=== PATIENT | female | born 1990 | race Two or more races ===

== ENCOUNTER 2019-05-20 23:28 | Emergency (ER) | payer MEDICAID ==
[~2019-05-20] VITALS: Ht 162.6 cm; Wt 65.8 kg
[2019-05-21 04:03] VITALS: BP 118/82
[2019-05-21] MEDS ORDERED: ACETAMINOPHEN/CODEINE#3 (300/30mg) TAB PO ONE (04:15)
== END 2019-05-21 04:50 | disposition home or self-care (01) ==
LOC: EDBD 23:28 → ER 23:32
DX: O9A.212 Injury, poisoning and certain other consequences of external causes complicating pregnancy, second trimester (principal); M62.838 Other muscle spasm; J30.9 Allergic rhinitis, unspecified; Z3A.17 17 weeks gestation of pregnancy; V43.52XA Car driver injured in collision with other type car in traffic accident, initial encounter; Y93.89 Activity, other specified; Y99.8 Other external cause status; Y92.410 Unspecified street and highway as the place of occurrence of the external cause

== ENCOUNTER 2019-09-10 16:24 | Observation (INO) | payer MEDICAID ==
[2019-09-10] MEDS ORDERED: PREN-96 PO (17:18)
== END 2019-09-10 17:12 | disposition home or self-care (01) | DRG 563 ==
LOC: LDRP 16:24
PROVIDERS: ADMIT Specialist; ATTEND Specialist
DX: O60.03 Preterm labor without delivery, third trimester (principal); Z3A.31 31 weeks gestation of pregnancy
CPT/HCPCS: 59025; 81002; G0378

== ENCOUNTER 2019-09-13 20:21 | Observation (INO) | payer MEDICAID ==
[~2019-09-13] VITALS: Ht 160 cm; Wt 73.5 kg
[~2019-09-13 20:21] MED LIST: PREN-96 PO
[2019-09-13] MEDS ORDERED: ACETAMINOPHEN 325 MG TAB PO ONE ×2 (21:14→21:15)
== END 2019-09-13 21:45 | disposition home or self-care (01) | DRG 566 ==
LOC: LDRP 20:21
PROVIDERS: ADMIT Obstetrics & Gynecology; ATTEND Obstetrics & Gynecology
DX: O99.513 Diseases of the respiratory system complicating pregnancy, third trimester (principal); O26.893 Other specified pregnancy related conditions, third trimester; J00 Acute nasopharyngitis [common cold]; R05 Cough; R10.9 Unspecified abdominal pain; Z3A.32 32 weeks gestation of pregnancy
CPT/HCPCS: 59025; 81002; 82948; 82962; G0378

== ENCOUNTER 2019-10-12 09:45 | Observation (INO) | payer MEDICAID ==
[2019-10-12 10:41] LABS: Basophils # (auto) 0 10 ^3/uL (0-0.2); Basophils % (auto) 0.4 % (0.0-2.0); Eosinophils # (auto) 0 10 ^3/uL (0-0.8); Eosinophils % (auto) 0.1 % (0.0-7.0); Hematocrit 38.8 % (36.0-46.0); Hemoglobin 13.2 g/dL (12.2-16.2); Lymphocytes # (auto) 1.5 10 ^3/uL (0.4-5.4); Lymphocytes % (auto) 17.3 % (10.0-50.0); Mean Corpuscular Hemoglobin 31.2 pg (28.0-32.0); Mean Corpuscular Hgb Conc. 34.2 g/dL (32.0-36.0); Mean Corpuscular Volume 91.4 fL (80.0-100.0); Monocytes # (auto) 0.3 10 ^3/uL (0-1.3); Monocytes % (auto) 3.9 % (0.0-12.0); Neutrophils # (auto) 6.8 10 ^3/uL (1.6-8.6); Neutrophils % (auto) 78.3 % (37.0-80.0); Nucleated Red Blood Cells % 0.1 %; Platelet Count (auto) 173 10^3/uL (140-450); Red Blood Cells 4.24 10^6/uL (4.0-5.20); Red Cell Distribution Width 15.1 % (11.8-14.3); White Blood Cell 8.7 10^3/uL (4.4-10.8)
[2019-10-12 10:47] LABS: Albumin 2.3 g/dL (3.4-5.0); Calcium 8.6 mg/dL (8.5-10.1); Potassium 3.7 mmol/L (3.5-5.1); Uric Acid 3.8 mg/dL (2.6-6.0)
[2019-10-12 10:50] LABS: BUN/Creatinine Ratio 13.7; Bilirubin, Total 0.4 mg/dL (0.2-1.0); Total Protein 6.7 g/dL (6.4-8.2)
[2019-10-12 11:12] LABS: INR 0.89 (0.9-1.15)
[2019-10-12] MEDS ORDERED: URSO300C9 PO (12:07)
[2019-10-12] MEDS ORDERED: GLYB1.257 PO (12:07)
[2019-10-13 07:06] LABS: RPR Non Reactive (Non Reactive)
== END 2019-10-12 13:00 | disposition home or self-care (01) | DRG 566 ==
LOC: LDRP 09:45
PROVIDERS: ADMIT Specialist; ATTEND Specialist
DX: O24.419 Gestational diabetes mellitus in pregnancy, unspecified control (principal); K83.1 Obstruction of bile duct; O26.613 Liver and biliary tract disorders in pregnancy, third trimester; Z3A.36 36 weeks gestation of pregnancy
CPT/HCPCS: 36415; 59025; 76805; 76818; 80053; 81002; 82962; 84550; 85025; 85610; 85730; 86592; G0378

== ENCOUNTER 2019-10-15 11:40 | Observation (INO) | payer MEDICAID ==
[~2019-10-15] VITALS: Ht 160 cm; Wt 73.5 kg
[~2019-10-15 11:40] MED LIST changes: +GLYB1.257 PO; +URSO300C9 PO
[2019-10-15] MEDS ORDERED: BETAMETHASONE ACET (6MG/ML) 5ML VIAL IM ONE (12:45)
[2019-10-15 13:42] LABS: Albumin 2.3 g/dL (3.4-5.0); Calcium 8.7 mg/dL (8.5-10.1); Potassium 3.9 mmol/L (3.5-5.1)
[2019-10-15 13:47] LABS: BUN/Creatinine Ratio 14.5; Bilirubin, Total 0.4 mg/dL (0.2-1.0); Total Protein 6.9 g/dL (6.4-8.2)
== END 2019-10-15 14:25 | disposition home or self-care (01) | DRG 566 ==
LOC: LDRP 11:40
PROVIDERS: ADMIT Obstetrics & Gynecology; ATTEND Obstetrics & Gynecology
DX: O24.419 Gestational diabetes mellitus in pregnancy, unspecified control (principal); O26.613 Liver and biliary tract disorders in pregnancy, third trimester; K83.1 Obstruction of bile duct; Z3A.37 37 weeks gestation of pregnancy
CPT/HCPCS: 36415; 59025; 76818; 80053; 81002; 82948; 82962; 96372; G0378; J0702

== ENCOUNTER 2019-10-16 13:10 | Observation (INO) | payer MEDICAID ==
[~2019-10-16] VITALS: Ht 160 cm; Wt 72.6 kg
[2019-10-16] MEDS ORDERED: BETAMETHASONE ACET (6MG/ML) 5ML VIAL IM ONE (13:45)
== END 2019-10-16 14:10 | disposition home or self-care (01) | DRG 566 ==
LOC: LDRP 13:10
PROVIDERS: ADMIT Specialist; ATTEND Specialist
DX: O26.613 Liver and biliary tract disorders in pregnancy, third trimester (principal); K83.1 Obstruction of bile duct; O24.415 Gestational diabetes mellitus in pregnancy, controlled by oral hypoglycemic drugs; Z3A.36 36 weeks gestation of pregnancy
CPT/HCPCS: 59025; 81002; 96372; G0378

== ENCOUNTER 2019-10-19 10:21 | Outpatient (CLI) | payer MEDICAID | END 2019-10-19 11:39 | disposition home or self-care (01) | LOC: LDRP 10:21 → UNDOADMOB 10:21 → OB 10:21 → UNDODISOB 11:39 → EDSTATUS 11-08 06:45 | PROVIDERS: ATTEND Obstetrics & Gynecology | DX: O26.613 Liver and biliary tract disorders in pregnancy, third trimester (principal); Z3A.37 37 weeks gestation of pregnancy | CPT/HCPCS: 76805; 76818; G0378 ==

== ENCOUNTER 2019-10-19 17:00 | Observation (INO) | payer MEDICAID ==
[2019-10-19 18:40] LABS: Albumin 2.4 g/dL (3.4-5.0); Calcium 8.5 mg/dL (8.5-10.1)
[2019-10-19 18:44] LABS: Bilirubin, Total 0.2 mg/dL (0.2-1.0); Total Protein 6.8 g/dL (6.4-8.2)
[2019-10-19 18:52] LABS: BUN/Creatinine Ratio 23.4
== END 2019-10-19 19:31 | disposition home or self-care (01) | DRG 566 ==
LOC: LDRP 17:00
PROVIDERS: ADMIT Obstetrics & Gynecology; ATTEND Obstetrics & Gynecology
DX: O26.613 Liver and biliary tract disorders in pregnancy, third trimester (principal); K83.1 Obstruction of bile duct; O24.419 Gestational diabetes mellitus in pregnancy, unspecified control; Z3A.37 37 weeks gestation of pregnancy
CPT/HCPCS: 36415; 59025; 80053; 81002; 82962; G0378

== ENCOUNTER 2019-10-22 19:06 | Observation (INO) | payer MEDICAID ==
[~2019-10-22] VITALS: Ht 160 cm; Wt 74.8 kg
== END 2019-10-22 22:02 | disposition home or self-care (01) | DRG 566 ==
LOC: LDRP 19:06
PROVIDERS: ADMIT Specialist; ATTEND Specialist
DX: O24.415 Gestational diabetes mellitus in pregnancy, controlled by oral hypoglycemic drugs (principal); K83.1 Obstruction of bile duct; O26.613 Liver and biliary tract disorders in pregnancy, third trimester; Z3A.37 37 weeks gestation of pregnancy
CPT/HCPCS: 59025; 76818; 81002; 82962; G0378

== ENCOUNTER 2019-10-23 09:18 | Inpatient (IN) | payer MEDICAID ==
[~2019-10-23] VITALS: Ht 160 cm; Wt 74.8 kg
[2019-10-23] MEDS ORDERED: METHYLERGONOVINE MALEATE 0.2 MG/ML AMP IM PRN (09:30)
[2019-10-23] MEDS ORDERED: LACT. RINGERS/OXYTOCIN 20UNITS 1,000 ML IV SCH (09:30)
[2019-10-23] MEDS ORDERED: CARBOPROST TROMETHAMINE 250 MCG/1ML VIAL IM PRN (09:30)
[2019-10-23] MEDS ORDERED: LIDOCAINE 2%HCL (LOCAL ANESTH.) INJ 20ML MDV ID ONE (09:30)
[2019-10-23] MEDS ORDERED: PHISODERM TOP SOLN 240ML BTL TOP PRN (09:30)
[2019-10-23] MEDS ORDERED: NALBUPHINE HCL 10 MG/1ml INJECTION IV PRN (09:30)
[2019-10-23 10:27] LABS: Basophils # (auto) 0.1 10 ^3/uL (0-0.2); Basophils % (auto) 0.6 % (0.0-2.0); Eosinophils # (auto) 0 10 ^3/uL (0-0.8); Eosinophils % (auto) 0.3 % (0.0-7.0); Hemoglobin 12.7 g/dL (12.2-16.2); Lymphocytes # (auto) 1.5 10 ^3/uL (0.4-5.4); Lymphocytes % (auto) 18.2 % (10.0-50.0); Mean Corpuscular Hemoglobin 31.6 pg (28.0-32.0); Mean Corpuscular Hgb Conc. 34.2 g/dL (32.0-36.0); Mean Corpuscular Volume 92.5 fL (80.0-100.0); Monocytes # (auto) 0.5 10 ^3/uL (0-1.3); Monocytes % (auto) 5.6 % (0.0-12.0); Neutrophils # (auto) 6.3 10 ^3/uL (1.6-8.6); Neutrophils % (auto) 75.3 % (37.0-80.0); Nucleated Red Blood Cells % 0.1 %; Platelet Count (auto) 171 10^3/uL (140-450); Red Cell Distribution Width 15.8 % (11.8-14.3); White Blood Cell 8.3 10^3/uL (4.4-10.8)
[2019-10-23 10:33] LABS: Urine Bacteria FEW /hpf (None Seen); Urine Blood Negative /uL (Negative); Urine Specific Gravity 1.004 (1.001-1.035); Urine WBC 8 /hpf (0 - 5)
[2019-10-23 10:48] LABS: INR 0.9 (0.9-1.15); Partial Thromboplastin Time 29.1 sec (23.64-32.05)
[2019-10-23] MEDS: miSOPROStol 50 MCG per PRE-CUT 1/2 TAB PO PRN ×4 (10:56→23:50)
[2019-10-23 11:03] LABS: Albumin 2.2 g/dL (3.4-5.0); Calcium 8.6 mg/dL (8.5-10.1); Potassium 3.8 mmol/L (3.5-5.1)
[2019-10-23 11:08] LABS: BUN/Creatinine Ratio 17.8; Bilirubin, Total 0.2 mg/dL (0.2-1.0); Total Protein 6.4 g/dL (6.4-8.2)
[2019-10-23] MEDS: LACTATED RINGER'S 1,000 ML IV SCH ×2 (17:00→23:38)
[2019-10-23] MEDS: BUTORPHANOL TARTRATE 2 MG/1 ML VIAL IV PRN (23:44)
[2019-10-23] MEDS: PROMETHAZINE HCL 25 MG/ML 1ML IM PRN (23:44)
[2019-10-24] MEDS: WITCH HAZEL-GLYCERIN PAD TOP PRN (03:23)
[2019-10-24] MEDS: DERMOPLAST 60ML BOTTLE TOP PRN (03:23)
[2019-10-24] MEDS: PROMETHAZINE HCL 25 MG/ML 1ML IM PRN (04:06)
[2019-10-24] MEDS: BUTORPHANOL TARTRATE 2 MG/1 ML VIAL IV PRN (04:07)
[2019-10-24] MEDS: LACTATED RINGER'S 1,000 ML IV SCH ×3 (04:24→09:45)
[2019-10-24 05:06] LABS: RPR Non Reactive (Non Reactive)
[2019-10-24] MEDS ORDERED: LACTATED RINGER'S 1,000 ML IV ONE (07:08)
[2019-10-24] MEDS ORDERED: fentaNYL CITRATE 100 MCG/2 ML VL IV ONE (07:15)
[2019-10-24] MEDS ORDERED: fentaNYL 200mCg/100ml W ROPIVA 100 ML EPI SCH (07:15)
[2019-10-24] MEDS ORDERED: LIDOCAINE HCL 2 %PF INJ 10ML AMP IJ ONE (07:15)
[2019-10-24] MEDS ORDERED: ePHEDrine SULFATE 50 MG/ML AMP IV ONE (07:15)
[2019-10-24] MEDS ORDERED: NALOXONE HCL 0.4 MG/ML VIAL IV ONE (07:15)
[2019-10-24] MEDS ORDERED: D5W/LACTATED RINGERS 1,000 ML IV SCH (11:15)
[2019-10-24] MEDS ORDERED: ceFAZolin 1GM/50ML 50 ML IV ONE (15:30)
--- NOTE | 2019-10-24 19:00 | NUR ---
Ambulation: Patient OOB with standby assistance by RN. Patient ambulated to bathroom with steady gait. Patient able to void 700ML without difficulty. [facility] teaching provided with returned demonstration by patient. Clean gown provided and bed linen changed. Patient ambulated back to bed with steady gait and no distress noted.
[2019-10-24] MEDS ORDERED: ACETAMINOPHEN 325 MG TAB PO PRN (19:45)
[2019-10-24] MEDS: DOCUSATE SOD 100 MG CAP PO SCH (22:00)
[2019-10-24] MEDS: IBUPROFEN 600 MG TAB PO PRN (22:51)
[2019-10-24 23:04] VITALS: BP 111/68
[2019-10-25 07:10] VITALS: BP 106/64
[2019-10-25] MEDS: IBUPROFEN 600 MG TAB PO PRN ×3 (07:14→20:57)
[2019-10-25 11:00] VITALS: BP 118/68
[2019-10-25 14:30] VITALS: BP 110/53
--- NOTE | 2019-10-25 18:35 | NUR ---
IV removal: Pt states discomfort in IV. IV site without redness, swelling or infiltration. Pt requests for IV to be DC'd. IV DC'd with clean sterile technique, catheter fully intact. Pressure dressing applied to site. Patient tolerated well.
[2019-10-25 18:45] VITALS: BP 111/55
--- NOTE | 2019-10-25 18:45 | NUR ---
PT REQUESTING TO SHOWER AT THIS TIME. THIS RN PROVIDES CLEAN LINENS AND NEW GOWN FOR PT. FOB ACCOMPANIES MOM TO SHOWER AND KEEPS BABY IN [place] NEARBY. NO DISTRESS NOTED AT THIS TIME.
[2019-10-25 23:30] VITALS: BP 119/62
[2019-10-26 02:20] VITALS: BP 118/76
[2019-10-26 03:30] VITALS: BP 118/76
--- NOTE | 2019-10-26 06:15 | NUR ---
Report received from Froylan Negro RN on stable pt. Assumed care. Addendum: 10/26/19 at 0629 by Marie Buckley RN Amended: Links added.
[2019-10-26 06:42] VITALS: BP 114/65
[2019-10-26] MEDS: IBUPROFEN 600 MG TAB PO PRN (06:54)
--- NOTE | 2019-10-26 07:00 | NUR ---
Teaching: Reviewed information in [facility] booklet with patient. Discussed benefits of and risks associated with not . Discussed different positions, proper latch, feeding cues, and baby-led . Provided information of medication side effects related to . All questions and concerns addressed at this time. Patient verbalized understanding of information.
--- NOTE | 2019-10-26 10:12 | NUR ---
Discharge: Discharge instructions given as ordered. Pt encouraged to follow up with [facility] as instructed. All questions and concerns addressed. Patient verbalized understanding. Medication reconciliation completed and copy given to patient. All required/requested vaccines given and copies of vaccinations given to patient. Patient encouraged to prepare to depart unit.
[2019-10-26] MEDS: DERMOPLAST 60ML BOTTLE TOP PRN (10:25)
[2019-10-26] MEDS: DOCUSATE SOD 100 MG CAP PO SCH (10:25)
--- NOTE | 2019-10-26 10:44 | NUR ---
Cord dry, cord clamp removed. Signed: 10/26/19 at 1056 by TOMMY JOHNSTON SN <Co-Signature Required> Co-Signed: 10/26/19 at 1056 by Marie Buckley RN
[2019-10-26 10:46] VITALS: BP 112/59
[2019-10-26] MEDS: WITCH HAZEL-GLYCERIN PAD TOP PRN (10:54)
--- NOTE | 2019-10-26 11:40 | NUR ---
Discharge: Patient ambulates to vehicle with steady gait, with all personal belongings, accompanied by staff and family member. No distress noted at time of departure, no adverse changes in status since initial assessment.
== END 2019-10-26 11:40 | disposition home or self-care (01) | DRG 560 ==
LOC: LDRP 09:18 → OBSVTOIN 09:18
PROVIDERS: ADMIT Obstetrics & Gynecology; ATTEND Obstetrics & Gynecology
PROC: 10E0XZZ Delivery of Products of Conception, External Approach (ICD-10-PCS; principal; 2019-10-24)
PROC: 0KQM0ZZ Repair Perineum Muscle, Open Approach (ICD-10-PCS; 2019-10-24)
PROC: 3E0S3BZ Introduction of Anesthetic Agent into Epidural Space, Percutaneous Approach (ICD-10-PCS; 2019-10-24)
DX: O26.62 Liver and biliary tract disorders in childbirth (principal); K83.1 Obstruction of bile duct; O24.429 Gestational diabetes mellitus in childbirth, unspecified control; Z37.0 Single live birth; O36.8130 Decreased fetal movements, third trimester, not applicable or unspecified; Z3A.37 37 weeks gestation of pregnancy; O90.1 Disruption of perineal obstetric wound
CPT/HCPCS: 36415; 59025; 59409; 80053; 81001; 82948; 82962; 84112; 85025; 85610; 85730; 86592; 86850; 86900; 86901; 96365; 96366; 96372; 96375; G0378; J0690; J2590